=== PATIENT | male | born 1945 | race Caucasian/White ===

== ENCOUNTER 2019-06-30 10:34 | Outpatient (CLI) | payer OTHER, MEDICARE, SELFPAY ==
--- NOTE | ~2019-06-30 | CT_ITS ---
EXAMINATION: CT abdomen wo con DATE: 06/30/2019 11:06 INDICATION: Pancreatic cyst TECHNIQUE: Computed tomography (CT) of the abdomen was performed with intravenous contrast. Automated exposure control and iterative reconstruction technique were employed. Exam dose: 864.86 mGy-cm tot al exam DLP. COMPARISON: 10/25/2018 CT abdomen pelvis FINDINGS: There is discoid atelectasis or scarring in the middle lobe. The lung bases are clear of in filtrate or consolidation. Normal heart size. No pericardial or pleural effusion. The liver, gallbladder, spleen, and adrenal glands are unremarkable. 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 Previously reported differential diagnosis includes pseudocyst, intraductal pa pillary mucinous neoplasm, mucinous cystic neoplasm and less commonly serous cystadenoma and neuroend ocrine tumor. No other pancreatic mass lesion or calcification or pancreatic duct dilatation. The gallbladder is present. No bile duct dilatation. Bilateral parapelvic renal cysts. There are at least 2 pinpoint nonobstructing right renal calculi. N o ureteral calculus or hydroureteronephrosis. Diverticulosis of the colon; no CT evidence of diverticulitis. Normal appendix. No bowel obstruction or intraperitoneal free air. Small fat-containing umbilical hernia. Degenerative changes of the thoracic and lumbar spine are noted, including multilevel degenerative di sc disease of the lumbar spine, most pronounced at L5-S1, degenerative change at the apophyseal joint s with associated grade 1 anterolisthesis at L4-5. No suspicious osteolytic or osteoblastic lesions are noted. 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 Reviewed, dictated and finalized at [facility].
== END 2019-06-30 10:35 | disposition home or self-care (01) ==
LOC: ANHIMG 10:41
PROVIDERS: PCP Family Medicine; Visit Provider Family Medicine
DX: K86.2 Cyst of pancreas (principal)
CPT/HCPCS: 74150

== ENCOUNTER 2022-05-24 06:39 | Outpatient (CLI) | payer OTHER, MEDICARE, SELFPAY ==
[2022-05-24 07:35] LABS: Basophils Percent Auto 0.9 % (0.2-1.2); Eosinophils Absolute Auto 0.2 K/mm3 (0-0.3); Eosinophils Percent Auto 3.5 % (0-4.4); Hematocrit 49.7 % (42.0-52.0); Hemoglobin 16.9 g/dL (14.0-18.0); Immature Granulocyte Absolute 0.02 K/mm3 (0.00-0.031); Immature Granulocyte Percent A 0.5 % (0-0.5); Lymphocytes Absolute Auto 1.18 K/mm3 (0.9-3.2); Lymphocytes Percent Auto 27.3 % (18.3-44.2); Mean Corpuscular Hemoglobin 34.3 pg (26-34); Mean Corpuscular Volume 100.8 fl (80-100); Mean Platelet Volume 10.1 fl (7.4-10.4); Monocytes Absolute Auto 0.5 K/mm3 (0.1-0.6); Monocytes Percent Auto 11.1 % (2.6-8.5); Neutrophils Absolute Auto 2.5 K/mm3 (1.3-6.7); Neutrophils Percent Auto 56.7 % (45.5-73.1); Platelet Count Result 150 k/mm3 (150-375); Red Blood Count 4.93 M/mm3 (4.6-6.20); Red Cell Distribution Width 13.8 % (11.5-14.5); White Blood Count 4.3 K/mm3 (4.5-10.0)
[2022-05-24 10:45] LABS: Alanine Aminotransferase 41 U/L (6-50); Albumin Level 4.2 g/dL (3.5-5.1); Alkaline Phosphatase 62 U/L (38-126); Anion Gap 4 mmol/L (8-16); Aspartate Amino Transferase 40 U/L (17-59); Bilirubin,Total 0.9 mg/dL (0.2-1.3); Blood Urea Nitrogen 16 mg/dL (9-20); Calcium 8.6 mg/dL (8.4-10.2); Carbon Dioxide 30 mmol/L (22-30); Chloride 103 mmol/L (98-107); Cholesterol 160 mg/dL (0-200); Estimated Glomerular Filt Rate > 60; Glucose 105 mg/dL (65-110); HDL Direct 47 mg/dL; Potassium 4.5 mmol/L (3.4-5.0); Sodium 137 mmol/L (137-145); Triglycerides 97 mg/dL (<150)
[2022-05-24 10:46] LABS: LDL Cholesterol Direct 50 mg/dL; Prostate Specific Antigen 2.6 ng/mL (< OR = 4.0); Vitamin D 25 Hydroxy 61.3 ng/mL
[2022-05-25 05:14] LABS: Free T4 Free Thyroxine Reflex 0.85 ng/dL (0.78-2.19)
[2022-05-25 06:01] LABS: Total Triiodothyronine (T3) 1.38 NG/ML (0.97-1.69)
== END 2022-05-24 06:40 | disposition home or self-care (01) ==
PROVIDERS: PCP Family Medicine; Visit Provider Family Medicine
DX: Z00.00 Encounter for general adult medical examination without abnormal findings (principal); E55.9 Vitamin D deficiency, unspecified; I10 Essential (primary) hypertension; Z13.220 Encounter for screening for lipoid disorders; E53.8 Deficiency of other specified B group vitamins; Z12.5 Encounter for screening for malignant neoplasm of prostate
CPT/HCPCS: 36415; 80053; 80061; 82306; 82607; 84153; 84439; 84443; 84480; 85025; G0103

== ENCOUNTER 2022-08-15 13:30 | Outpatient (RCR) | payer OTHER, MEDICARE, SELFPAY ==
--- NOTE | 2022-06-12 13:30 | PTOPEVAL1 ---
Assessment and note entered by Carolynn Bob, PT Evaluation Information Assessment Status Evaluation Diagnosis low back pain Onset 6 months ago Subjective Information gradual increase in back pain; no recent trauma or injury to back; work as [employer]--lots of standing; no recent imaging or tests; do not do any regular exercises for his back, except some stretching for neck and back; wearing back brace PRN; go to fitness center about 1-2 x/wk for arm and leg weights; Reported Pain Level Pain Score Self Report Additional Pain Score Comments range of 0-6/10; when try to stand up straight, hurts and hip; decrease pain: sit down and rest; not taking any pain med, but occasional tylenol; use inversion table at home use PRN, able to go all the way down; walking for shopping is OK, leaning on cart; use ice PRN; no pain in his legs or hips; Assessment PT Clinical Summary Omar has the diagnosis of back pain. He reports chronic issues with back pain, since active in all sports and works as clark standing all day. Oswestry self assessment functional score of 6% limitation. He is able to do everything, but issues with standing up straight and when he sits, pain is gone. With the evaluation, he has tightness over R and L hamstrings, piriformis and motions of hip extension and ER; he has weakness of upper trunk extension and hip extension; poor standing posture with rounded shoulders and thoracic spine, flexion of trunk/hips and knees. Skilled PT services are indicated to increase hip and trunk strength, increase flexibility of hips and trunk, with education for posture and HEP, with use of modalities PRN for pain control. Plan of Care Interventions Gait Training,Manual Therapy,Neuro Re-education, Therapeutic Activities,Therapeutic Exercise, Ultrasound, pt education Other Interventions taping PT Services Indicated Yes Treatment Frequency and
--- NOTE | 2022-07-17 15:04 | PTOPPROG ---
Assessment and note entered by Carolynn Bob, PT Evaluation Information Assessment Status Progress Diagnosis low back pain Onset 6 months ago Subjective Information Omar reports: feels like his back is better and has more flexibility; want to continue therapy; continues to go to the fitness center at least once/wk--does treadmill and weight equipment; discussed using recumbant bike or stepper for less stain on his back; PAIN: range in the past week: 0-4/10; bilateral low back; increase with standing; decrease sit/ rest; occassionally take aleve, about 1x/wk; Assessment PT Clinical Summary Omar has had 6 PT sessions. Compared to the initial evaluation: pain at the worst has decreased from 6 to 4/10; increased flexibility of R and L hamstring and piriformis muscles; improved walking posture with more upright trunk/ less flexion of hips & trunk; prone hip extension bilateral is still (-5'); increase strength of hips and trunk; educated and is performing HEP; The goals were partially achieved. Continue PT to further increase flexibility & strength of trunk and hips, with progression of HEP, fitness center activities and back care education. Plan of Care Interventions Electrical Stimulation,Hot Pack/Cold Pack,Manual Therapy,Neuro Re-education,Patient/Caregiver Education,Therapeutic Activities,Therapeutic Exercise Other Interventions taping PT Services Indicated Yes Treatment Frequency and 1x/wk for 4 weeks Duration These treatments will address the objective and functional deficits as defined above. The patient will be advanced safely and appropriately in order for the patient to progress towards his/her prior level of function. Additional exercises will be introduced and as well as a comprehensive home exercise program upon discharge, if needed, ?to ensure carryover of functional gains achieved in the clinic. This treatment plan has been reviewed and agreement upon by the patient.
--- NOTE | 2022-08-15 14:01 | PTOPDC ---
Assessment and note entered by Carolynn Bob, PT Evaluation Information Assessment Status Discharge Diagnosis low back pain Onset 6 months ago Subjective Information Omar reports: people are telling him he is walking more upright; have been the exercises at home and have more flexibility; Reported Pain Level Pain Score Self Report Additional Pain Score Comments pain range in past week 0-4/10; ache in back, increases with standing; decrease pain with rest, sitting, inversion table, ibuprofen PRN; have not been doing heat or stim at home; Assessment PT Clinical Summary Omar has received 10 PT sessions. Compared to the last reeval: pain rating is the same at 0-4/10; pain is eased with sitting down; standing posture has improved with more upright trunk and hip extension; increased flexibility of R and L hamstrings and hip extension to 0' in prone; strength and stability of his trunk and hips is about the same--with single leg standing and sitting ball exercises; He has been educated and is indep with his home exercise program. And pain control with heat, stretching, stim unit, position change. The goals were partially achieved. Discharge PT services. Plan of Care PT Services Indicated No
== END 2022-08-28 12:44 | disposition home or self-care (01) ==
LOC: ANHPT 13:30
PROVIDERS: PCP Family Medicine; Visit Provider Family Medicine
DX: M54.50 Low back pain, unspecified (principal); G89.29 Other chronic pain
CPT/HCPCS: 97014; 97110; 97140; 97161; 97530; G0283

== ENCOUNTER 2023-05-21 06:56 | Outpatient (CLI) | payer OTHER, MEDICARE, SELFPAY ==
[2023-05-21 07:54] LABS: Basophils Percent Auto 0.8 % (0.2-1.2); Eosinophils Absolute Auto 0.1 K/mm3 (0-0.3); Eosinophils Percent Auto 2.2 % (0-4.4); Hematocrit 50.2 % (42.0-52.0); Hemoglobin 16.8 g/dL (14.0-18.0); Immature Granulocyte Absolute 0.01 K/mm3 (0.00-0.031); Immature Granulocyte Percent A 0.2 % (0-0.5); Immature Platelet Fraction Pct 3.4 % (0.9-11.2); Lymphocytes Absolute Auto 1.51 K/mm3 (0.9-3.2); Lymphocytes Percent Auto 29.6 % (18.3-44.2); Mean Corpuscular HGB Conc 33.5 g/dl (32-36); Mean Corpuscular Hemoglobin 33.8 pg (26-34); Mean Platelet Volume 10.3 fl (7.4-10.4); Monocytes Absolute Auto 0.5 K/mm3 (0.1-0.6); Monocytes Percent Auto 10.6 % (2.6-8.5); Neutrophils Absolute Auto 2.9 K/mm3 (1.3-6.7); Neutrophils Percent Auto 56.6 % (45.5-73.1); Platelet Count Result 148 k/mm3 (150-375); Red Blood Count 4.97 M/mm3 (4.6-6.20); Red Cell Distribution Width 13.6 % (11.5-14.5); White Blood Count 5.1 K/mm3 (4.5-10.0)
[2023-05-21 08:02] LABS: Alanine Aminotransferase 41 U/L (6-50); Albumin Level 4.2 g/dL (3.5-5.1); Alkaline Phosphatase 60 U/L (38-126); Anion Gap 7 mmol/L (8-16); Aspartate Amino Transferase 38 U/L (17-59); Bilirubin,Total 0.8 mg/dL (0.2-1.3); Blood Urea Nitrogen 14 mg/dL (9-20); Calcium 8.6 mg/dL (8.4-10.2); Carbon Dioxide 28 mmol/L (22-30); Chloride 102 mmol/L (98-107); Cholesterol 141 mg/dL (0-200); Estimated Glomerular Filt Rate > 60; Glucose 105 mg/dL (65-110); HDL Direct 47 mg/dL; Potassium 4.1 mmol/L (3.4-5.0); Sodium 137 mmol/L (137-145); Triglycerides 151 mg/dL (<150)
[2023-05-21 08:14] LABS: LDL Cholesterol Direct 49 mg/dL
[2023-05-21 11:35] LABS: Vitamin B12 > 1000.0 pg/mL (239-931)
[2023-05-23 15:29] LABS: PSA, Free 0.88 ng/mL; PSA, Total 2.5 ng/mL (<=4.0)
[2023-05-24 16:19] LABS: Vitamin D 1,25 (OH)2 Total 35 pg/mL (18-72); Vitamin D2 1,25 (OH)2 <8 pg/mL; Vitamin D3 1,25 (OH)2 35 pg/mL
== END 2023-05-21 06:57 | disposition home or self-care (01) ==
LOC: ANHLAB 06:59
PROVIDERS: PCP Nurse Practitioner Family; Visit Provider Nurse Practitioner Family
DX: E53.8 Deficiency of other specified B group vitamins (principal); I10 Essential (primary) hypertension; E55.9 Vitamin D deficiency, unspecified; Z12.5 Encounter for screening for malignant neoplasm of prostate
CPT/HCPCS: 36415; 80053; 80061; 82607; 82652; 84153; 84154; 85025; 85055

== ENCOUNTER 2023-12-03 06:57 | Outpatient (CLI) | payer OTHER, MEDICARE, SELFPAY ==
[2023-12-03 07:37] LABS: Alanine Aminotransferase 35 U/L (6-50); Albumin Level 4.1 g/dL (3.5-5.1); Alkaline Phosphatase 55 U/L (38-126); Anion Gap 10 mmol/L (4-12); Aspartate Amino Transferase 33 U/L (17-59); Blood Urea Nitrogen 18 mg/dL (9-20); Calcium 8.3 mg/dL (8.4-10.2); Carbon Dioxide 27 mmol/L (22-30); Chloride 101 mmol/L (98-107); Estimated Glomerular Filt Rate > 60; Glucose 106 mg/dL (65-110); Sodium 138 mmol/L (137-145)
[2023-12-03 07:45] LABS: Basophils Percent Auto 0.5 % (0.2-1.2); Eosinophils Absolute Auto 0.2 K/mm3 (0-0.3); Eosinophils Percent Auto 2.9 % (0-4.4); Hematocrit 51.2 % (42.0-52.0); Hemoglobin 17.4 g/dL (14.0-18.0); Immature Granulocyte Absolute 0.03 K/mm3 (0.00-0.031); Immature Granulocyte Percent A 0.5 % (0-0.5); Immature Platelet Fraction Pct 3.8 % (0.9-11.2); Lymphocytes Absolute Auto 1.68 K/mm3 (0.9-3.2); Mean Corpuscular Hemoglobin 34.6 pg (26-34); Mean Corpuscular Volume 101.8 fl (80-100); Mean Platelet Volume 10.4 fl (7.4-10.4); Monocytes Absolute Auto 0.5 K/mm3 (0.1-0.6); Monocytes Percent Auto 8.5 % (2.6-8.5); Neutrophils Absolute Auto 3.8 K/mm3 (1.3-6.7); Neutrophils Percent Auto 60.6 % (45.5-73.1); Platelet Count Result 137 k/mm3 (150-375); Red Blood Count 5.03 M/mm3 (4.6-6.20); Red Cell Distribution Width 13.5 % (11.5-14.5); White Blood Count 6.2 K/mm3 (4.5-10.0)
[2023-12-03 08:26] LABS: Vitamin B12 > 1000.0 pg/mL (239-931)
[2023-12-08 14:07] LABS: Vitamin D 1,25 (OH)2 Total 38 pg/mL (18-72); Vitamin D2 1,25 (OH)2 <8 pg/mL; Vitamin D3 1,25 (OH)2 38 pg/mL
== END 2023-12-03 06:58 | disposition home or self-care (01) ==
LOC: ANHLAB 07:01
PROVIDERS: PCP Family Medicine; Visit Provider Nurse Practitioner Family
DX: E55.9 Vitamin D deficiency, unspecified (principal); I10 Essential (primary) hypertension; E53.8 Deficiency of other specified B group vitamins
CPT/HCPCS: 36415; 80053; 82607; 82652; 85025; 85055

== ENCOUNTER 2024-07-14 12:26 | Outpatient (CLI) | payer MEDICARE, OTHER, SELFPAY ==
--- NOTE | ~2024-07-14 | MR_ITS ---
EXAMINATION: MR lumbar spine wo con DATE: 07/14/2024 12:52 INDICATION: Low back pain, unspecified. TECHNIQUE: Magnetic resonance imaging (MRI) of the lumbar spine was performed without intravenous con trast. Sequences included sagittal T2-weighted FSE, sagittal T2-weighted FS FSE, sagittal T1-weighted FSE, and axial T2-weighted FSE. COMPARISON: None FINDINGS: There is 6 degrees levocurvature of thoracic lumbar spine. There is 3 mm retrolisthesis of L2 on L3 and 4 mm anterolisthesis of L4 on L5. There is mild chronic anterior wedging of T11 and T12 vertebral bodies. There is moderately decreased disc height at L2-L3 and L3-L4, mildly decreased disc height at L4-L5, and moderately decreased disc height at L5-S1. There is ligamentum flavum hypertrop hy at the disc levels from L1-L2 through L4-L5. The distal spinal cord signal intensity is normal. Th e conus medullaris is at L1. The following disc levels are specifically discussed: L1-L2: The disc is bulging. There is mild bilateral facet joint osteoarthritis. There is mild bilater al neural foraminal stenosis. There is mild central canal stenosis. L2-L3: The disc is bulging. There is moderate bilateral facet joint osteoarthritis. There is moderate right and mild left neural foraminal stenosis. There is mild central canal stenosis. L3-L4: The disc is bulging and has an annular fissure. There is severe right and moderate left facet joint osteoarthritis. There is mild bilateral neural foraminal stenosis. There is mild central canal stenosis. L4-L5: The disc is bulging and has an annular fissure. There is severe bilateral facet joint osteoart hritis. There is mild bilateral neural foraminal stenosis. There is severe central canal stenosis. L5-S1: The disc is bulging and has an annular fissure. There is moderate bilateral facet joint osteoa rthritis. There is mild bilateral neural foraminal stenosis. There is mild central canal stenosis. IMPRESSION: 1. Severe lumbar spondylosis. Reviewed, dictated and finalized at [facility].
== END 2024-07-14 12:27 | disposition home or self-care (01) ==
LOC: MICIMG 12:27
PROVIDERS: PCP Family Medicine; Visit Provider Nurse Practitioner Family
DX: M47.816 Spondylosis without myelopathy or radiculopathy, lumbar region (principal)
CPT/HCPCS: 72148

== ENCOUNTER 2024-12-01 06:41 | Outpatient (CLI) | payer OTHER, MEDICARE, SELFPAY ==
--- OUTSIDE RECORDS SUMMARY | 2024-12-01 06:45 | XMS_ITS | Continuity of Care Document ---
Author Organization [facility] Address [id number] [place] [address] [place] [address] Phone Care Team Providers Care Auditing Coder Name Role Phone Lolly Krishnamurthy OD Unavailable Unavailable Advance Directives Directive Yes / No Effective Date File Name No Information Encounters Encounter Description Practice Location Reason(s) For Visit Diagnoses Date Provider Providers Copied on Encounter [facility], [address] [place], [place], [id number], [place] tel:[phone] [address] [facility] No Information Yessy Ambrocio. [address] [facility] [place], [address], [place]. tel:[phone] Family History Family Member Type Diagnosis Age At Onset No Information Payers Payer name Insurance type Covered green party ID Authoriza tion(s) No Information Social History Type Description Quantity Date Captured Comments Sex Male Smoking Status No Information Chief Complaint And Reason For Visit No Information Reason For Referral Reason For Referral No Information History Of Present Illness Encounter Date Complaint History Of Prese nt Illness No Information Functional Status Date Functional Assessmen t No Information Instructions Date Instruction Additional Infor mation No Information Assessments Type Assessment Date No Information Patient Care Teams Name Effective Dates (start - stop) Status Members No Information
--- OUTSIDE RECORDS SUMMARY | 2024-12-01 06:45 | XMS_ITS | Clinical Summary ---
Author Organization [facility] [address] Address [address] [place] [address] Care Team Providers Care Physical Scientist Name Role Phone Eunice Sandoval MD Primary Care Provider [phone] Social History Tobacco Use Types Packs/Day Years Used Date Smoking Tobacco: Never Assessed Personal Safety Answer Date Recorded Getting School Help Needed Not on file 07/07 Sex and Gender Information Value Date Recorded Sex Assigned at Not on file Legal Sex Male 10:56 AM CDT Gender Identity Male 08/30/2020 10:55 AM CDT Sexual Orientation Not on file Plan of Treatment Not on file Insurance [facility] MEDICARE Care Teams Physical Scientist Relationship Specialty Start Date End Date Eunice Sandoval MD [address] [place] [address] PCP - General Family Medicine 08/19/20
[2024-12-01 07:34] LABS: Hematocrit 51.6 % (42.0-52.0); Hemoglobin 17.1 g/dL (14.0-18.0); Immature Granulocyte Percent A 0.4 % (0-0.5); Immature Platelet Fraction Pct 3.0 % (0.9-11.2); Lymphocytes Absolute Auto 1.34 K/mm3 (0.9-3.2); Mean Corpuscular HGB Conc 33.1 g/dl (32-36); Mean Corpuscular Hemoglobin 33.5 pg (26-34); Mean Corpuscular Volume 101.0 fl (80-100); Nucleated Red Blood Cells Absolute Auto 0.000 K/mm3 (0.0-0.012); Nucleated Red Blood Cells Perc 0.0 % (0.0-0.2); Platelet Count Result 127 k/mm3 (150-375); Red Blood Count 5.11 M/mm3 (4.6-6.20); White Blood Count 5.5 K/mm3 (4.5-10.0)
[2024-12-01 07:51] LABS: Alanine Aminotransferase 44 U/L (6-50); Albumin Level 4.1 g/dL (3.5-5.1); Alkaline Phosphatase 60 U/L (38-126); Anion Gap 7 mmol/L (4-12); Aspartate Amino Transferase 43 U/L (17-59); Bilirubin,Total 0.9 mg/dL (0.2-1.3); Blood Urea Nitrogen 16 mg/dL (9-20); Calcium 8.6 mg/dL (8.4-10.2); Carbon Dioxide 28 mmol/L (22-30); Chloride 102 mmol/L (98-107); Cholesterol 133 mg/dL (0-200); Estimated Glomerular Filt Rate > 60; Glucose 108 mg/dL (65-110); HDL Direct 52 mg/dL; Potassium 4.3 mmol/L (3.4-5.0); Sodium 137 mmol/L (137-145); Total Protein 6.8 g/dL (6.3-8.2); Triglycerides 106 mg/dL (<150)
[2024-12-01 07:56] LABS: Hemoglobin A1C 5.6 % (<5.7)
[2024-12-01 12:08] LABS: Thyroid Stimulating Hormone Reflex 4.270 uIU/mL (0.465-4.68)
[2024-12-01 17:53] LABS: Free T4 Free Thyroxine Reflex 0.78 ng/dL (0.78-2.19)
[2024-12-01 19:08] LABS: Total Triiodothyronine (T3) 1.08 NG/ML (0.82-1.58)
== END 2024-12-01 06:42 | disposition home or self-care (01) ==
PROVIDERS: PCP Family Medicine; Visit Provider Nurse Practitioner Family
DX: Z00.00 Encounter for general adult medical examination without abnormal findings (principal); E55.9 Vitamin D deficiency, unspecified; R73.01 Impaired fasting glucose; Z13.220 Encounter for screening for lipoid disorders; Z13.29 Encounter for screening for other suspected endocrine disorder
CPT/HCPCS: 36415; 80053; 80061; 82306; 83036; 84439; 84443; 84480; 85025; 85055